=== PATIENT | female | born 1955 | race Caucasian/White ===

== ENCOUNTER 2020-11-21 08:00 | Outpatient (RCR) | payer MEDICARE, SELFPAY ==
--- NOTE | 2020-10-24 14:54 | PTOPEVAL ---
INITIAL PHYSICAL THERAPY EVALUATION and PLAN OF CARE Thank you for referring Violetta Forrester to [facility].? Violetta is scheduled to be seen for physical therapy? 1x/week for 6 weeks. Please review, sign, date and return this plan of care NAZARIO. I agree with and certify that the following plan of care is medically necessary. Referring Physician Date Admitting Provider: Attending Provider: Carol Gómez, ANP Referring Provider: *PT Outpatient Evaluation Start: 10/24/20 13:44 Freq: Status: Active Protocol: Document 10/24/20 13:45 BRIANNA (Rec: 10/24/20 14:54 BRIANNA [id number]) Therapy Assessment Status Assessment Status Assessment Status Evaluation Outpatient Past Medical History Past Medical History Source of Past Medical History Patient Cardiovascular History Hx Hypercholesterolemia Yes Hx Hypertension Yes Gastrointestinal History Hx Gastroesophageal Reflux Disease Yes Genitourinary History Hx Urinary Tract Infection Yes Endocrine History Hx Other Endocrine Disorders Yes: parathyroid removal Evaluation Information Problem Diagnosis urinary leakage Onset ~4 months ago Subjective Information Having to wear a pad all of Query Text:As Reported By Patient/ the time - getting increased Family UTI's Began to notice difficulty with getting to the bathroom, increase for urination Prior Level of Function Activity Level (Last 3 Months) Hand Dominance Right Medications Home Meds (Include: OTC, RX, Vitamins, amlodipine, lisinopril, Herbals, Dose, Route,and Frequency) prilosec OTC, low dose aspirin Query Text:Home Med Entries Will No , caltrate, something for Longer Recall From Past Visits. Home cholesterol Meds Must Be Re-entered With Each Visit. Home Setting Home Type House,Single Level Environmental Barriers Stairs, None Living Situation Alone Mobility Assistive Devices (Used Last 3 None Months) Pain Assessment Timing of Pain Assessment Timing of Pain Assessment Assessment Self Report Self Report Pain Level 0 Pain Score Pain Score 0: Self Report Cervical and Lumbar ROM Lumbar ROM Lumbar ROM 50% of Normal Lumbar Comments + R standing flexion test Lower Extremity Range of Motion Hip Range of Motion Bilateral Hip Range of Motion Comments in sitting - WFL for hip ROM bilaterally Lower Extremity Muscle Strength Testing Hip Strength Bilateral Hip Strength Comments WNL for isometric testing - bilaterally Posture Posture Standing Position Posture Evaluation Vie
--- NOTE | 2020-11-21 08:42 | PTOPEVAL ---
PHYSICAL THERAPY DISCHARGE SUMMARY Thank you for referring Violetta Forrester to [facility].? Violetta was seen for a total of 5 visits. All goals have been met. She is to continue with her HEP on a regular basis. I agree with Violetta's discharge from PT. Referring Physician Date Admitting Provider: Attending Provider: Carol Gómez, ANP Referring Provider: Therapy Assessment Status Assessment Status Assessment Status Discharge Evaluation Information Problem Diagnosis urinary leakage Subjective Information Violetta states that she is able Query Text:As Reported By Patient/ to sleep through the night now Family , waking up dry and able to make it to the bathroom without leaking. She usually goes through the day with a dry pad and has gone to thinner pads. Really pleased as to how well the exercises have helped her. Pain Assessment Self Report Self Report Pain Level 0 Pelvic Health Evaluation Pelvic Floor Assessment Sustained Levator Ani Strength 3 Quick Levator Ani Contraction in 15 16 Seconds PT Clinical Summary Clinical Summary Protocol: PTEVCODE PT Clinical Summary Incontinence Impact Questionnaire - 4.8% Urogenital Distress Inventory - 16.7% Violetta has progressed well in PT with pelvic floor strengthening and decreasing urinary incontinence. She has regained fast twitch and slow twitch muscle strength of levator ani, able to use urge strategies to keep from leaking, and she has been compliant with her HEP. All goals have been met. She is ready for d/c from PT to HEP.
== END 2020-11-21 15:53 | disposition home or self-care (01) ==
LOC: ANHHIPT 08:00
PROVIDERS: PCP Internal Medicine; Visit Provider Physician Assistant Medical
DX: R32 Unspecified urinary incontinence (principal)
CPT/HCPCS: 97110; 97161

== ENCOUNTER 2021-12-25 09:00 | Outpatient (RCR) | payer MEDICARE, SELFPAY ==
--- NOTE | 2021-11-06 12:33 | PTOPEVAL ---
PHYSICAL THERAPY INITIAL EVALUATION. Thank you for referring Violetta Forrester to [facility].? The patient is scheduled to be seen for therapy? 1-2x/week for 4 weeks. Please review, sign, date and return this plan of care NAZARIO. I agree with and certify that the following plan of care is medically necessary. Referring Physician Date Attending Provider: Carol Gómez, ANP *PT Outpatient Evaluation Start: 11/06/21 Evaluation Information Diagnosis R shoulder and B knee pain Subjective Information Pt report new onset of R Query Text:As Reported By Patient/ shoulder pain without a Family mechanism of injury. She reports chronic knee pain in both knees R > L that has been going on a multiple years. Pt states descending stairs are most difficult for the knees, and for the shoulder reaching behind her back is most difficult. Pt reports most of her knee pain first thing in the morning, she states walking around makes it feel a little bit better. She reports she just started participation in [employer]. Pain Assessment Self Report Pain Assessment Bilateral Knee(s) Reported Pain Level 0 Pain Description Soreness,Tightness Pain Frequency Chronic,Intermittent Lowest Pain Intensity 0 Greatest Pain Intensity 7 Pain Aggravating Factors Stair Climbing,Weight Bearing/ Standing Right Shoulder(s) Reported Pain Level 2 Pain Description Aching,Sharp Pain Frequency Acute,Intermittent Lowest Pain Intensity 2 Greatest Pain Intensity 8 Pain Aggravating Factors Lifting Other Pain Aggravating Factors reaching behind her back Upper Extremity Range of Motion Gross Upper Extremity Range of Motion L shoulder flexion 0-127 Comments L shoulder abduction 0 - 132 R shoulder flexion 0-120 R shoulder abduction 0-126 L,R shoulder functional ER: T4, T3 L, R shoulder functional IR: T7, T8 Lower Extremity Range of Motion Gross Lower Extremity Range of Motion L knee active ROM 0-132 Comments R knee active ROM 0-135 Lower Extremity Muscle Strength Testing Gross Lower Extremity Strength B ankle and hip flexion 4+/5 B knee flexion/ext 4/5 R glute med 4-
--- NOTE | 2021-11-22 08:50 | PCPTNOTE ---
Patient called 11/20/21 and stated she needs to cancel her appointment 11/22/21 due to having covid.
--- NOTE | 2021-11-29 08:51 | PTOPEVAL ---
PHYSICAL THERAPY PROGRESS REPORT. Thank you for referring Violetta Forrester to [facility].? The patient is scheduled to be seen for therapy?1x/week for 4 weeks. Please review, sign, date and return this plan of care NAZARIO. I agree with and certify that the following plan of care is medically necessary. Referring Physician Date Attending Provider: Carol Gómez, ANP Evaluation Information Diagnosis R shoulder and B knee pain Subjective Information Pt states her knee is doing Query Text:As Reported By Patient/ better. She states she can Family feel her shoulders and upper back loosening up but she is still having pain in her shoulder making it hard to sleep. Pt states she has started walking more frequently. Pain Assessment Self Report Pain Assessment Bilateral Knee(s) Reported Pain Level 0 Greatest Pain Intensity 4 Right Shoulder(s) Reported Pain Level 0 Pain Description Aching,Sharp Greatest Pain Intensity 7 Upper Extremity Range of Motion Gross Upper Extremity Range of Motion L shoulder flexion 0-127 Comments L shoulder abduction 0 - 132 R shoulder flexion 0-120 R shoulder abduction 0-135 L,R shoulder functional ER: T4 , T3 L, R shoulder functional IR:T7, T8 Lower Extremity Muscle Strength Testing Gross Lower Extremity Strength B ankle, hip flexion, knee flexion 4+/5 B knee ext 4/5 R glute med 4/5 L glute med 3+/5 Upper Extremity Muscle Strength Testing General Upper Extremity Strength WFL/Left,WFL/Right Gross Upper Extremity Strength Comments B UE grossly 4+/5 R shoulder abduction and flexion 4/5 Muscle Length Testingng Pectoralis Major Muscle Length (R) Moderate Tightness,(L) Moderate Tightness Pectoralis Minor Muscle Length (R) Moderate Tightness,(L) Moderate Tightness Posture Posture Evaluation View Posterior Head/C-Spine Posture Side Bent Right,Excess Extension,C-Spine Flattened Thoracic Spine Posture Increased Kyphosis Lumbar Spine Posture Increased Lordosis,Flexible Scoliosis on (R) Palpation Assessment Palpation posterior GH joint Special Tests-Upper Extremity Drop Arm Test Negative Left,Negative Right Hawkin's Kenneth Test Negative Left,Negative Right Balance Assessment Time in Seconds
--- NOTE | 2021-12-25 09:30 | PTOPEVAL ---
PHYSICAL THERAPY PROGRESS REPORT AND DISCHARGE SUMMARY. Thank you for referring Violetta Forrester to [facility].? The patient is to be discharged from skilled physical therapy services at this time. Please review, sign, date and return this plan of care NAZARIO. I agree with and certify that the following plan of care is medically necessary. Referring Physician Date Attending Provider: Carol Gómez, ANP Evaluation Information Diagnosis R shoulder and B knee pain Subjective Information Pt states she still has Query Text:As Reported By Patient/ shoulder pain when she does Family certain motions, she states it hurts bad when she does this but it does eventually go away . She states her chest feels like it has opened up a lot and that it is easier to have better posture. She reports her knees are still doing okay, she reports prolonged inactivity still causes her the most pain. Pt states she is still having problems, but by now she is used to living with it. Pain Assessment Bilateral Knee(s) Reported Pain Level 0 Greatest Pain Intensity 7 Right Shoulder(s) Reported Pain Level 0 Greatest Pain Intensity 7 Upper Extremity Range of Motion Gross Upper Extremity Range of Motion L shoulder flexion 0-130 Comments L shoulder abduction 0 - 135 R shoulder flexion 0-126 R shoulder abduction 0-135 L,R shoulder functional ER: T4, T3 L, R shoulder functional IR: T7, T8 Lower Extremity Muscle Strength Testing Gross Lower Extremity Strength B ankle, hip flexion, knee flexion 4+/5 B knee ext 4+/5 R glute med 4/5 L glute med 4-/5 Upper Extremity Muscle Strength Testing General Upper Extremity Strength WFL/Left,WFL/Right Gross Upper Extremity Strength Comments B UE grossly 4+/5 allison shoulder ext/int rot 4/5 Muscle Length Testing Pectoralis Major Muscle Length (R) Moderate Tightness,(L) Moderate Tightness Pectoralis Minor Muscle Length (R) Moderate Tightness,(L) Moderate Tightness Posture Posture Evaluation View Posterior Head/C-Spine Posture Side Bent Right,Excess Extension,C-Spine Flattened Thoracic Spine Posture Increased Kyph
== END 2021-12-25 11:03 | disposition home or self-care (01) ==
LOC: ANHHIPT 09:00
PROVIDERS: PCP Internal Medicine; Visit Provider Physician Assistant Medical
DX: M25.561 Pain in right knee (principal); M25.562 Pain in left knee; M25.511 Pain in right shoulder
CPT/HCPCS: 97110; 97112; 97140; 97161